=== PATIENT | female | born 1940 | race Caucasian/White ===

== ENCOUNTER 2016-10-29 05:35 | Day surgery (SDC) | payer MEDICARE, OTHER ==
[2016-10-27 11:21] LABS: BASOPHILS 0.5 % (0-2); EOSINOPHILS 6.4 % (0-7); HEMATOCRIT 42.6 % (36.0-48.0); HEMOGLOBIN 14.5 g/dL (12-16); IMMATURE GRANULOCYTES 0.2 % (0-5); LYMPHOCYTES 23.5 % (15-50); MCH 32.4 pg (26.0-34.0); MCV 95.3 fL (80.0-100.0); MEAN PLATELET VOLUME 10.8 fL (7.4-10.4); MONOCYTES 15.1 % (2-11); NEUTROPHILS 54.3 % (40-80); RBC 4.47 10x6/uL (4.00-5.40); RDW 12.8 % (11.5-14.5); WBC 8.2 10x3/uL (4.8-10.8)
[2016-10-27 11:22] LABS: PLATELET COUNT 241 10x3/uL (130-400)
[2016-10-27 11:59] LABS: ANION GAP 12.9 mmol/L (8-16); CALCIUM 8.8 mg/dL (8.5-10.1); CARBON DIOXIDE 27.1 mmol/L (21.0-32.0); CREATININE - SERUM 1.2 mg/dL (0.6-1.3)
[~2016-10-29] VITALS: Ht 167.6 cm; Wt 85.7 kg
[~2016-10-29 05:35] MED LIST: ASPIRIN EC81 M1 PO; AZULFIDINE500 MG PO; BAYER CHEWABLE81 MG PO; CLINORIL150 MG PO; COLACE100 MG PO; COUMADIN5 MG PO; LEVOXYL25 MCG PO; MEVACOR40 MG PO; MS CONTIN15 MG PO; MULTI-DAY VITAM1 TAB PO; MULTIPLE VITAMI1 TA1 PO; PERCOCET 10/3251 TA1 PO; PERCODAN TABLET1 TAB PO; TENORMIN50 MG PO; VALIUM5 MG PO
[2016-10-29] MEDS ORDERED: ALEVE220 MG PO (07:02)
[2016-10-29 07:03] VITALS: BP 144/57; Ht 167.6 cm; Wt 85.7 kg
--- NOTE | 2016-10-29 12:43 | NUR ---
1230-RETURNED FROM PACU. DROWSY, AROUSES EASILY. DENIES PAIN.
--- NOTE | 2016-10-29 12:46 | NUR ---
1245-TAKING LIQUIDS WITHOUT NAUSEA.
== END 2016-10-29 14:00 | disposition home or self-care (01) ==
LOC: D.OPS 05:35 → D.PAN 07:30 → D.OPS 08:30
PROVIDERS: Anesthesiology
DX: N95.0 Postmenopausal bleeding (principal); I10 Essential (primary) hypertension; E03.9 Hypothyroidism, unspecified; F41.8 Other specified anxiety disorders; Z01.812 Encounter for preprocedural laboratory examination

== ENCOUNTER 2018-02-07 13:31 | Observation (INO) | payer MEDICARE, OTHER ==
[~2018-02-07] VITALS: Ht 167.6 cm; Wt 81.8 kg
--- NOTE | ~2018-02-07 | MORECARE ---
CASE MANAGEMENT DISCHARGE SUMMARY PATIENT: STEVE FERNANDEZ UNIT: [id number] ADM DATE: 02/07/18 AGE: 77 : 38 SEX: F ROOM/BED: D.2133 AUTHOR: MARY HALL PHYSICIAN: REFERRING PHYSICIAN: JOHN HORTON MD DATE OF SERVICE: 02/11/18 Discharge Plan Patient Name: STEVE [facility]ER[facility]NDEZ [facility] [facility] 1940 Planned Disposition: Home Anticipated Discharge Date: 02/09/18 Discharge Date: 02/09/2018 Expected LOS: 2 Initial Reviewer: [email or web address] Initial Review Date: 02/11/2018 Generated: 02/11/18 6:06 pm Coverage Notice Reviewer: [email or web address] Alex Bullock Notice Issued Date-Time: 02/08/2018 14:00 Notice Type: Medicare Outpatient Observation Notice Notice Delivered To: Patient Relationship to Patient: Self [employer] Foreman Name: SUSAN CASTILLO Delivery Method: HAND - Hand Delivered Layne Days: Prior Verbal Notification: Recipient Understood Notice: Yes Recipient Signature: Yes Med Rec Note Co-signed by Attending: Coverage Notice Comment: SPOKE IN THE PRESENCE OF HER SON ANNA FERNANDEZ AFTER VERBAL CONSENT OBTAINED. Patient Name: STEVE FERNANDEZ Page [id number] at 1706 All edits/amendments must be made on the electronic document DICTATION DATE: 02/11/181705 FIRE ADJUSTER: ADELA 02/11/181705 RPT#: [id number] DC DATE:02/09/18 STATUS: DIS IN [facility] [address] [place] [address] END OF REPORT
--- NOTE | ~2018-02-07 | EC ---
PATIENT:STEVE FERNANDEZ DATE OF SERVICE: 02/07/18 SEX: F MEDICAL RECORD: [id number] DATE OF : 38 LOCATION:D.M2 D.213 AGE OF PATIENT: 77 ADMISSION DATE: 02/07/18 REFERRING PHYSICIAN: INTERPRETING PHYSICIAN: GHISLAINE ELAM MD ECHOCARDIOGRAM REPORT ECHO CHARGES 4 ECHO COMPLETE Date: 02/08/18 CLINICAL DIAGNOSIS: TIA ECHOCARDIOGRAPHIC MEASUREMENTS (adult normal given) AC root (d.<3.7cm) 2.7 cm LV Septum d (<1.2 cm> 0.9 cm Valve Excursion 1.5 cm LV Septum (systole) 1.1 cm Left Atria (s.<4.0cm> 3.9 cm LVPW d(<1.2cm) 0.8 cm RV (d.<2.3cm) 2.8 cm LVPW (sytole) 1.1 cm LV diastole(<5.6CM) 5.4 cm MV E-F(>70mm/sec) cm LV systole 4.6 cm LVOT Diameter 1.6 cm MV exc.(>10mm) cm Est.ejection fraction (50-75%) % DOPPLER: LVIT cm/sec A 71 cm/sec E 47 cm/sec LA cm/sec RVSP 18.5 mmHg LVOT 99 cm/sec AOP1/2T m/s Asc. Ao 115 cm/sec RVOT 87 cm/sec RA cm/sec PA 83 cm/sec AV Gradient Peak 5.3 mmHg AV Mean 3.3 mmHg AV Area 1.6 cm MV Gradient Peak 3.8 mmHg MV Mean 1.7 mmHg MV Area cm COMMENTS: Pointing Machine Operator: Christie HUGGINS Hoop Expander: 1 Dr. Elam TAPE# PACS Pericardial Effusion N DATE OF SERVICE: 02/08/2018 DATE OF SERVICE: 02/08/2018 ECHOCARDIOGRAM FINDINGS: 1. Left ventricular chamber size is within normal limits. Left ventricular systolic function is normal. Overall ejection fraction estimated at 60%. 2. Left atrium, right atrium, and right ventricle chamber sizes are within ECHOCARDIOGRAM REPORT [id number] STEVE FERNANDEZ normal limits. 3. Valvular structures have normal structure and motion. 4. Doppler interrogation only reveals trace tricuspid regurgitation, no other valvular insufficiency or stenosis and pulmonary systolic pressure is normal estimated at 19 mmHg. 5. No evidence of pericardial effusion or left ventricular thrombus. 6. No cardiac source of neurologic emboli. TRANSINT:[id number] Voice Confirmation ID: [id number] DOCUMENT ID: [id number] GHISLAINE ELAM MD at 1704 CC: [id number] DICTATION DATE: 02/09/18 1042 HEAD SCORER: 02/09/18 1121 DIS IN 02/09/18 [place] [id number] [place] [id number]
[~2018-02-07 13:31] MED LIST changes: +ALEVE220 MG PO
[2018-02-07 14:11] VITALS: BP 155/70
[2018-02-07 14:19] LABS: BASOPHILS 0.4 % (0-2); HEMATOCRIT 38.8 % (36.0-48.0); HEMOGLOBIN 13.2 g/dL (12-16); IMMATURE GRANULOCYTES 0.2 % (0-5); LYMPHOCYTES 32.6 % (15-50); MCH 33.2 pg (26.0-34.0); MCV 97.5 fL (80.0-100.0); MONOCYTES 17.2 % (2-11); NEUTROPHILS 41.6 % (40-80); PLATELET COUNT 238 10x3/uL (130-400); RBC 3.98 10x6/uL (4.00-5.40); RDW 12.7 % (11.5-14.5); WBC 5.7 10x3/uL (4.8-10.8)
[2018-02-07 14:23] LABS: ALBUMIN 3.2 g/dL (3.4-5.0); ALKALINE PHOSPHATASE 65 U/L (46-116); ALT (SGPT) 33 U/L (10-68); BILIRUBIN - TOTAL 0.36 mg/dL (0.2-1.3); CALC OSMOLALITY 281 mosm/kg (275-300); CALCIUM 8.3 mg/dL (8.5-10.1); CARBON DIOXIDE 26.3 mmol/L (21.0-32.0); CHLORIDE - SERUM 108 mmol/L (98-107); GLUCOSE 100 mg/dL (74-106); POTASSIUM - SERUM 3.9 mmol/L (3.5-5.1); PROTEIN - SERUM 6.6 g/dL (6.4-8.2); SODIUM 142 mmol/L (136-145); UREA NITROGEN 9 mg/dL (7-18); eGFR NON AFRICAN AMERICAN 57 mL/min (90-120)
[2018-02-07 14:29] VITALS: BP 147/49
[2018-02-07 14:36] LABS: CKMB 0.6 U/L (0.0-3.6); MAGNESIUM - SERUM 1.9 mg/dL (1.8-2.4); TROPONIN-I < 0.017 ng/mL (0.000-0.060)
[2018-02-07 14:40] LABS: APTT 33.6 SECONDS (22.8-39.4); INR 1.05 (0.85-1.17); PROTIME 13.4 SECONDS (11.6-15.0)
[2018-02-07 14:47] VITALS: BP 142/62
[2018-02-07 15:41] VITALS: BP 192/51; BMI 29.1
[2018-02-07] MEDS ORDERED: LOPRESSOR25 MG (15:56)
[2018-02-07] MEDS ORDERED: LEVOTHYROXINE50 MCG PO (15:59)
[2018-02-07] MEDS ORDERED: AZULFIDINE500 MG PO (16:04)
[2018-02-07] MEDS ORDERED: LOVASTATIN40 MG PO (16:05)
[2018-02-07 16:55] VITALS: BP 192/51
[2018-02-07 20:00] VITALS: BP 144/53
[2018-02-08] VITALS (7 sets, daily range): BP systolic 133–154; BP diastolic 51–71; Ht 167.6 cm; Wt 81.8 kg
[2018-02-09 01:16] VITALS: BP 147/73
[2018-02-09 05:37] LABS: BASOPHILS 0.3 % (0-2); EOSINOPHILS 6.1 % (0-7); HEMATOCRIT 38.1 % (36.0-48.0); HEMOGLOBIN 12.7 g/dL (12-16); IMMATURE GRANULOCYTES 0.1 % (0-5); LYMPHOCYTES 37.9 % (15-50); MCH 32.7 pg (26.0-34.0); MCHC 33.3 g/dL (31.0-37.0); MCV 98.2 fL (80.0-100.0); MEAN PLATELET VOLUME 11.2 fL (7.4-10.4); MONOCYTES 14.5 % (2-11); NEUTROPHILS 41.1 % (40-80); PLATELET COUNT 248 10x3/uL (130-400); RBC 3.88 10x6/uL (4.00-5.40); RDW 12.7 % (11.5-14.5)
[2018-02-09 05:50] VITALS: BP 144/63
[2018-02-09 06:12] LABS: WBC 7.2 10x3/uL (4.8-10.8)
[2018-02-09 06:16] LABS: ANION GAP 12.2 mmol/L (8-16); CALCIUM 8.4 mg/dL (8.5-10.1); CARBON DIOXIDE 26.4 mmol/L (21.0-32.0); CREATININE - SERUM 0.9 mg/dL (0.6-1.3); LDL-HDL RATIO 1.8 ratio (1.5-3.5); POTASSIUM - SERUM 3.6 mmol/L (3.5-5.1)
[2018-02-09 09:17] VITALS: BP 150/56
[2018-02-09 11:08] VITALS: BP 150/48
[2018-02-09] MEDS ORDERED: ASPIRIN EC325 M1 PO (11:25)
[2018-02-09 15:13] VITALS: BP 134/52
== END 2018-02-09 17:19 | disposition home or self-care (01) ==
LOC: D.ER 13:31 → D.M2 14:47 → OBSVTIME 14:47 → D.M2 02-09 17:19
PROVIDERS: Emergency Medicine; Internal Medicine Nephrology
DX: G45.9 Transient cerebral ischemic attack, unspecified (principal); I69.854 Hemiplegia and hemiparesis following other cerebrovascular disease affecting left non-dominant side; M54.12 Radiculopathy, cervical region; F10.10 Alcohol abuse, uncomplicated; K58.9 Irritable bowel syndrome, unspecified; E78.5 Hyperlipidemia, unspecified; I10 Essential (primary) hypertension